=== PATIENT | male | born 1950 | race Caucasian/White ===

== ENCOUNTER → 2016-12-18 | Outpatient (CLI) | payer MEDICARE, OTHER ==
[~2016-12-18] MED LIST: AMOXICILLIN500 MG PO; ASPIRIN LO-DOSE81 MG PO; B-12500 MCG PO; CO Q-10100 MG PO; CPAP INH; FLOMAX0.4 MG PO; GLUCOSAMINE S1000 M1 PO; LINZESS145 MCG PO; LIPITOR80 MG PO; MULTI VITAMIN1 EACH PO; NORCO 5-325 TA1 EACH PO; PANTOPRAZOLE SO40 MG PO; PRADAXA150 MG PO; TOPROL XL100 MG PO; TYLENOL EXTRA500 MG PO; ZOLOFT50 MG PO
== END | disposition disaster alternative care site (69) ==
LOC: GRAD 10:42
DX: R63.4 Abnormal weight loss (principal); R10.9 Unspecified abdominal pain; G31.9 Degenerative disease of nervous system, unspecified
CPT/HCPCS: A9577

== ENCOUNTER → 2016-12-23 | Day surgery (SDC) | payer MEDICARE, OTHER ==
[~2016-12-23] VITALS: Ht 188 cm; Wt 109.1 kg
== END | disposition disaster alternative care site (69) ==
LOC: GPOC 12-22 16:00 → GEND 08:25 → GPOC 08:30
PROC: 0DJ08ZZ Inspection of Upper Intestinal Tract, Via Natural or Artificial Opening Endoscopic (ICD-10-PCS; principal; 2016-12-23)
PROC: 0DJD8ZZ Inspection of Lower Intestinal Tract, Via Natural or Artificial Opening Endoscopic (ICD-10-PCS; 2016-12-23)
DX: K21.0 Gastro-esophageal reflux disease with esophagitis (principal); K57.30 Diverticulosis of large intestine without perforation or abscess without bleeding; K44.9 Diaphragmatic hernia without obstruction or gangrene; K59.09 Other constipation; I25.10 Atherosclerotic heart disease of native coronary artery without angina pectoris; I48.91 Unspecified atrial fibrillation; G47.33 Obstructive sleep apnea (adult) (pediatric); Z90.49 Acquired absence of other specified parts of digestive tract; Z96.619 Presence of unspecified artificial shoulder joint; Z98.890 Other specified postprocedural states
CPT/HCPCS: J7030

== ENCOUNTER → 2017-01-15 | Day surgery (SDC) | payer MEDICARE, OTHER ==
[~2017-01-15] VITALS: Ht 188 cm; Wt 107.1 kg
--- NOTE | ~2017-01-15 | OR ---
PATIENT'S NAME: RICHARD MOREJON [facility] AGE: 66 Y [address] ROOM: [place] [address] [place] [facility] [place] DATE: 01/15/2017 OR/Procedure Report DISCHARGE DATE: FAMILY PHYSICIAN: JC TORRE APRN ATTENDING PHYSICIAN: Caio Blackwell SURGEON: Caio Blackwell DPM SOLE SKIVER: DATE OF PROCEDURE: 01/15/2017 PREOPERATIVE DIAGNOSIS: Hammertoe deformity of second, third, and fourth toes, right foot. POSTOPERATIVE DIAGNOSIS: Hammertoe deformity of second, third, and fourth toes, right foot. PROCEDURE PERFORMED: Arthrodesis of proximal interphalangeal joint with insertion of HammerFiX implant (size medium) of second, third, and fourth toes, right foot. OPERATIVE SUMMARY: On 01/15/2017, this 66-year-old male was transported to the operating room and placed in the operating room table in a supine position. Next, under sedation, local anesthesia was achieved via proximal digital blocks to the second through fourth toes on the right foot. Once this had been achieved, the right foot was prepped and draped in the usual sterile fashion. Next, a pneumatic ankle tourniquet was applied to well-padded site just proximal to malleoli and rapidly inflated to 200 mmHg following exsanguination by Esmarch bandage. Next, the right lower extremity was delivered back to the operating room table, sterile draping was completed, and the following procedures were performed: Arthrodesis of proximal interphalangeal joint with insertion of HammerFiX implant, second and fourth toes, right foot. At this time, attention was directed towards the patient's right foot, where on preoperative evaluation, he was noted to have a significant semirigid contracture of the second through fourth toes at the proximal interphalangeal joint. Preoperative x-ray evaluation confirmed that the apex of the deformity was at the proximal interphalangeal joint, and there was little contracture of the metatarsophalangeal joint. At this time, attention was directed towards the second through fourth toes, where approximately a 3 cm linear incision was created dorsally over the proximal interphalangeal joint. The incision was deepened down through the subcutaneous tissues. All coursing venous tributaries were identified, isolated, clamped, cut, and electrocoagulation was encountered. All vital neurovascular structures were gently retracted in the medial and lateral fashion. Dissection was then carried down to the level of the capsular tendinous structures to the respective joints of each of the PATIENT'S NAME: RICHARD MOREJON [facility] AGE: 66 Y [address] ROOM: [place] [address] [place] [facility] [place]: 01/15/2017 OR/Procedure Report DISCHARGE DATE: FAMILY PHYSICIAN: JC TORRE APRN ATTENDING PHYSICIAN: Caio Blackwell toes. Next, a level up the proximal interphalangeal joint, the capsular and tendinous structures were sharply transected, and dissection was carried in the medial and lateral fashion so as to incise the collateral ligaments. Once this had been achieved, the tendon was dissected free from the dorsal aspect of the head of the proximal and then base of the middle phalanx exposing the hypertrophic bone to the joint. He was noted to have minimal articular cartilage loss in each toe. Once this had been achieved, the sagittal saw was used to remove the articular surfaces from the respective proximal and distal sides of the joint to allow for arthrodesis of the joint. Once the articular surfaces had been removed, the HammerFiX implant was used to maintain fixation. Utilizing the HammerFiX kit, the proximal side of the joint was drilled and the distal side was tapped for placement of the implant. Once this was in position to each of the respective toes, there was noted to be good reduction of the deformity as well as good fixation for the arthrodesis. This was confirmed utilizing intraoperative C-Arm. Once this was achieved, there was again noted to be little contracture of the metatarsophalangeal joint, so there was no need to leave K-wires in place. Attention was then directed towards the closure. The wounds were flushed with copious amounts of sterile saline. The tendinous structures were reapproximated utilizing 4-0 Vicryl in a simple interrupted fashion. The skin edges were then reapproximated using 4-0 Ethilon in a running baseball suture. Being satisfied with this, attention was then directed towards bandaging. The incisions were each instilled with 1.5 mL of sterile dexamethasone phosphate. Next, a dressing consisting of Adaptic, sterile 4x4's, Kerlix, Misha, and Coban was applied in a mild compressive and corrective fashion to the patient's right foot. The previously applied pneumatic ankle tourniquet was rapidly deflated, and spontaneous capillary refill time noted to digits 1 through 5 of the patient's right foot. The patient tolerated the above procedures well and left the operating room in good condition with vital signs stable. He was returned to holding area for further monitoring prior to discharge. MARIA EUGENIA [facility]/modl /[id number] d: t: 01/15/17 2312, OPERATIVE SUMMARY
== END | disposition disaster alternative care site (69) ==
LOC: GPOC 01-13 10:00 → GSDC 06:40 → GPOC 07:00
PROC: 0SGM0ZZ (ICD-10-PCS; principal; 2017-01-15)
DX: M20.41 Other hammer toe(s) (acquired), right foot (principal); I25.10 Atherosclerotic heart disease of native coronary artery without angina pectoris; I48.91 Unspecified atrial fibrillation; I10 Essential (primary) hypertension; M19.90 Unspecified osteoarthritis, unspecified site; E78.00 Pure hypercholesterolemia, unspecified; G47.33 Obstructive sleep apnea (adult) (pediatric); Z79.82 Long term (current) use of aspirin; Z79.899 Other long term (current) drug therapy; Z98.41 Cataract extraction status, right eye; Z98.42 Cataract extraction status, left eye; Z96.612 Presence of left artificial shoulder joint; Z90.49 Acquired absence of other specified parts of digestive tract; Z98.890 Other specified postprocedural states
CPT/HCPCS: C1776; J0690; J1100; J2001; J7120